=== PATIENT | female | born 1975 | race Caucasian/White ===

== ENCOUNTER 2016-11-12 08:54 | Emergency (ER) | payer BC ==
[2016-11-12] MEDS ORDERED: SODIUM CHLORIDE 0.9% 1,000 ML ONE ×2 (09:21→11:35)
[2016-11-12] MEDS ORDERED: ONDANSETRON 4 MG VIAL ONE (09:21)
[2016-11-12] MEDS ORDERED: PROMETHAZINE 25 MG/ML VIAL ONE (11:35)
== END 2016-11-12 12:49 | disposition home or self-care (01) ==
LOC: ER 08:54
CPT/HCPCS: 36415; 71020; 74020; 80053; 81003; 83690; 85025; 87880; 96361; 96374; 96375